=== PATIENT | male | born 1985 | race Caucasian/White ===

== ENCOUNTER 2020-03-16 13:52 | Emergency (ER) | payer OTHER ==
[~2020-03-16] VITALS: Ht 152.4 cm; Wt 94.3 kg
[2020-03-16 14:11] VITALS: Ht 152.4 cm; Wt 94.3 kg
[2020-03-16 15:17] VITALS: BP 152/81
== END 2020-03-16 15:17 | disposition home or self-care (01) ==
LOC: ED 13:52
DX: R07.89 Other chest pain (principal); G89.29 Other chronic pain; M54.9 Dorsalgia, unspecified
CPT/HCPCS: 99406